=== PATIENT | male | born 1995 ===

== ENCOUNTER 2017-10-17 16:26 | Emergency (ER) | payer BC, MEDICAID ==
[2017-10-17 16:44] VITALS: BP 121/76; PULSE 93; RESP 18; TEMP 98.7; O2SAT 96
[2017-10-17] MEDS ORDERED: Naproxen 550 mg Tab PO STA (16:53)
[2017-10-17] MEDS ORDERED: Naproxen 550 mg Tab PO ONE (17:05)
--- NOTE | 2017-10-17 17:48 | RAD ---
PROCEDURE: Right Knee Radiographs. HISTORY: Pain COMPARISON: None available. FINDINGS: BONES: No acute displaced fracture. JOINTS: No dislocation. JOINT EFFUSION: Moderate suprapatellar joint effusion. OTHER FINDINGS: None. IMPRESSION: Moderate suprapatellar joint effusion. No acute displaced fracture or dislocation identified. If symptoms persist, or if there is continued clinical concern, x-ray follow-up in 7-10 days should be considered.
--- NOTE | 2017-10-17 17:51 | C.PDOC ---
History Of Present Illness 21 y/o male presents to the ED complaining of pain and swelling in the right knee. He states he injured his right knee after he ran and fell down the stairs yesterday. He denies any head injury, loss of consciousness, decrease in ROM, numbness, or any other injury. Time Seen by Provider: 10/17/17 16:39 Chief Complaint (Nursing): Lower Extremity Problem/Injury History Per: Patient History/Exam Limitations: no limitations Onset/Duration Of Symptoms: Hrs Current Symptoms Are (Timing): Still Present Past Medical History Reviewed: Historical Data, Nursing Documentation, Vital Signs Vital Signs: Last Vital Signs Temp 98.7 F 10/17/17 16:41 Pulse 93 H 10/17/17 16:41 Resp 18 10/17/17 16:41 BP 121/76 10/17/17 16:41 Pulse Ox 96 10/17/17 18:53 - Medical History PMH: No Chronic Diseases Surgical History: No Surg Hx Family History: States: No Known Family Hx - Social History Hx Tobacco Use: No Hx Alcohol Use: No Hx Substance Use: No - Immunization History Hx Tetanus Toxoid Vaccination: No Hx Influenza Vaccination: No Hx Pneumococcal Vaccination: No Review Of Systems Except As Marked, All Systems Reviewed And Found Negative. Musculoskeletal: Positive for: Other (Right Knee Pain and swelling) Physical Exam - Physical Exam Appears: Well, Non-toxic Skin: Normal Color Extremity: Normal ROM (right knee), Tenderness (tenderness to medial aspect of right knee), Capillary Refill (normal), No Deformity, Swelling (swelling to medial aspect of right knee), Other (no laxity with varus and valgus stress test , no laxity with ACL / PCL ) Pulses: Left Dorsalis Pedis: Normal, Right Dorsalis Pedis: Normal Neurological/Psych: Oriented x3, Normal Cranial Nerves, Normal Motor, Normal Sensation ED Course And Treatment O2 Sat by Pulse Oximetry: 96 (RA) Pulse Ox Interpretation: Normal - Other Rad XR R knee X-Ray: Interpreted by Me Interpretation: no fracture, no dislocation Medical Decision Making Medical Decision Making: Impression: Right Knee Injury Plan: Naproxen: 550 mg PO Patient given crutches and advised on RICE method. Stable for discharge home. Disposition Counseled Patient/Family Regarding: Studies Performed, Diagnosis (of knee sprain d/w the patient, advised rest, ice and elevate the knee, dylon wrap applied , and patient instructed on crutch walking), Need For Followup, Rx Given - Disposition Disposition: HOME/ ROUTINE Disposition Time: 17:50 Condition: STABLE Additional Instructions: Rest, ice and elevate your knee. Follow up with your pmd in 1-2 days for further evaluation without fail. Take medication as prescribed. Return to the ER at any time for any new or worsening symptoms. Prescriptions: Naproxen 500 mg PO BID #30 tab Instructions: Knee Sprain (ED) Forms: [employer] (Persian), Work Excuse Print Language: LITHUANIAN - Clinical Impression Clinical Impression: Knee sprain - PA / GREENSKEEPER / Resident Statement MD/DO has reviewed & agrees with the documentation as recorded. - Scribe Statement The provider has reviewed the documentation as recorded by the Markus Romano Provider Attestation: All medical record entries made by the Markus were at my direction and personally dictated by me. I have reviewed the chart and agree that the record accurately reflects my personal performance of the history, physical exam, medical decision making, and the department course for this patient. I have also personally directed, reviewed, and agree with the discharge instructions and disposition.
== END 2017-10-17 18:10 | disposition home or self-care (01) ==
LOC: C.ER 16:26
DX: S83.91XA Sprain of unspecified site of right knee, initial encounter (principal); W10.9XXA Fall (on) (from) unspecified stairs and steps, initial encounter